=== PATIENT | male | born 1950 | race Caucasian/White ===

== ENCOUNTER → 2022-03-29 10:27 | Outpatient (BNVA) | payer MEDICARE, SELFPAY | PROVIDERS: Family Provider Specialist; PCP Nurse Practitioner; Visit Provider Nurse Practitioner | DX: J18.9 Pneumonia, unspecified organism (principal) | CPT/HCPCS: 71046 ==

== ENCOUNTER → 2022-07-27 09:03 | Outpatient (BNVA) | payer MEDICARE, SELFPAY | PROVIDERS: Family Provider Specialist; PCP Nurse Practitioner; Visit Provider Nurse Practitioner | DX: I10 Essential (primary) hypertension (principal) | CPT/HCPCS: 80053; 80061; 85025 ==

== ENCOUNTER → 2022-08-21 08:55 | Outpatient (BNVA) | payer MEDICARE, SELFPAY | PROVIDERS: Family Provider Specialist; PCP Nurse Practitioner; Visit Provider Podiatrist Foot & Ankle Surgery | DX: L60.8 Other nail disorders (principal); B35.1 Tinea unguium | CPT/HCPCS: 99203 ==

== ENCOUNTER → 2022-09-10 09:51 | Outpatient (BNVA) | payer MEDICARE, SELFPAY | PROVIDERS: Family Provider Specialist; PCP Nurse Practitioner; Visit Provider Nurse Practitioner | DX: R06.02 Shortness of breath (principal); J44.1 Chronic obstructive pulmonary disease with (acute) exacerbation | CPT/HCPCS: 80048 ==

== ENCOUNTER → 2023-03-19 15:15 | Outpatient (BNVA) | payer MEDICARE, SELFPAY | PROVIDERS: Family Provider Specialist; PCP Nurse Practitioner; Visit Provider Nurse Practitioner | DX: J44.9 Chronic obstructive pulmonary disease, unspecified (principal); I70.0 Atherosclerosis of aorta | CPT/HCPCS: 71046 ==

== ENCOUNTER 2023-04-03 15:44 | Outpatient (CLI) | payer MEDICARE, SELFPAY ==
[2023-04-03 16:22] LABS: Blood Urea Nitrogen 27 mg/dL (8-23)
[2023-04-03 16:23] LABS: Glomerular Filtration Rate 59.9 mL/min (90-130)
[2023-04-03] MEDS: iohexol 350 mg/mL 500 mL Btl (per mL) IV (16:31)
--- NOTE | 2023-04-03 17:30 | CT_ITS ---
WS: [id number] CT chest w con* [id number] HISTORY: J44.9 - Chronic obstructive pulmonary disease, unspecified TECHNIQUE: Axial imaging performed through the thorax. Coronal and sagittal reformats are submitted. All CT scans at [facility] use at least one of these dose optimization techniques: automated exposure control; mA and/or kV adjustment per patient size (includes targeted exams where dose is mat ched to clinical indication); or iterative reconstruction. CONTRAST: Omnipaque 350; 100 mL IV. DLP: 552.27 mGy.cm COMPARISON: None available. Lungs and central airway: Chronic mild centrilobular emphysema. There is mild peripheral interstitial thickening greatest in the lower lung lara and greatest on the LEFT. This can be seen with respira tory bronchiolitis and endobronchial infection. There is a thin linear area of atelectasis or scar in the medial RIGHT lower lobe. No mass and no nodule. Pleura: Normal. No pleural effusion. Heart and pericardium: Normal size heart with no pericardial effusion. Mediastinum and emiliana: No mediastinum or hilar adenopathy. Vessels: Moderate atherosclerosis thoracic aorta. No aneurysm. Normal sized pulmonary artery. Chest wall and lower neck: No soft tissue masses. Upper abdomen: Small hiatal hernia. Osseous structures: Mild increase in thoracic kyphosis. Mild thoracic spondylosis. IMPRESSION: 1. Interstitial thickening with mild early changes of tree-in-bud airspace disease particularly in t he LEFT lower lobe. Suspect a mild respiratory bronchiolitis or endobronchial infection. Hypersensiti vity pneumonia should be also considered. 2. No mass or nodule. No adenopathy. 3. Moderate atherosclerosis thoracic aorta.
== END 2023-04-03 15:45 | disposition home or self-care (01) ==
LOC: RAD 15:45
PROVIDERS: Radiology Neuroradiology; Family Provider Specialist; PCP Nurse Practitioner; Visit Provider Nurse Practitioner
DX: J44.9 Chronic obstructive pulmonary disease, unspecified (principal); R47.02 Dysphasia; J98.4 Other disorders of lung; I70.0 Atherosclerosis of aorta
CPT/HCPCS: 71260; 82565; 84520; Q9967

== ENCOUNTER → 2023-10-21 09:08 | Outpatient (BNVA) | payer MEDICARE, SELFPAY | PROVIDERS: Family Provider Specialist; PCP Nurse Practitioner; Visit Provider Internal Medicine Critical Care Medicine | DX: J43.2 Centrilobular emphysema (principal); G47.34 Idiopathic sleep related nonobstructive alveolar hypoventilation; R06.09 Other forms of dyspnea; J44.9 Chronic obstructive pulmonary disease, unspecified; R05.3 Chronic cough; K21.9 Gastro-esophageal reflux disease without esophagitis; E66.9 Obesity, unspecified; R53.81 Other malaise; F17.211 Nicotine dependence, cigarettes, in remission; R06.02 Shortness of breath; Z68.32 Body mass index [BMI] 32.0-32.9, adult; Z71.6 Tobacco abuse counseling | CPT/HCPCS: 99204 ==

== ENCOUNTER → 2023-10-23 09:50 | Outpatient (BNVA) | payer MEDICARE, SELFPAY | PROVIDERS: Family Provider Specialist; PCP Nurse Practitioner; Referring Provider Nurse Practitioner; Visit Provider Nurse Practitioner | DX: I10 Essential (primary) hypertension (principal); E78.5 Hyperlipidemia, unspecified; R53.83 Other fatigue | CPT/HCPCS: 80053; 80061; 84443; 85025 ==

== ENCOUNTER 2023-12-04 08:08 | Outpatient (CLI) | payer MEDICARE, SELFPAY ==
[2023-12-04 08:42] VITALS: PULSE 75; RESP 18; O2SAT 98
[2023-12-04] MEDS: albuterol 2.5 mg/3 mL Neb INHALATION (08:42)
[2023-12-04 08:46] VITALS: PULSE 86
== END 2023-12-04 08:09 | disposition home or self-care (01) ==
PROVIDERS: PCP Nurse Practitioner; Visit Provider Internal Medicine Critical Care Medicine
DX: J44.9 Chronic obstructive pulmonary disease, unspecified (principal); R94.2 Abnormal results of pulmonary function studies
CPT/HCPCS: 94060; 94726; 94729; J7613

== ENCOUNTER → 2024-05-13 11:25 | Outpatient (BNVA) | payer MEDICARE, SELFPAY | PROVIDERS: PCP Nurse Practitioner; Visit Provider Nurse Practitioner | DX: R05.9 Cough, unspecified (principal); I70.90 Unspecified atherosclerosis | CPT/HCPCS: 71046 ==

== ENCOUNTER → 2024-06-29 10:29 | Outpatient (BNVA) | payer MEDICARE, SELFPAY | PROVIDERS: PCP Nurse Practitioner; Visit Provider Nurse Practitioner | DX: I10 Essential (primary) hypertension (principal); R06.09 Other forms of dyspnea | CPT/HCPCS: 80053; 80061; 83880; 84443; 85025 ==